=== PATIENT | male | born 1990 | race Caucasian/White ===

== ENCOUNTER 2016-11-08 20:55 | Emergency (ER) | payer SELFPAY ==
[~2016-11-08] VITALS: Ht 175.3 cm; Wt 108.7 kg
[~2016-11-08 20:55] MED LIST: AMOX875 PO; IBUP600T26 PO; TRAM50 PO
[2016-11-08 21:27] VITALS: BP 142/89; PULSE 96; RESP 18; TEMP 98.7; O2SAT 100
[2016-11-08] MEDS ORDERED: BACT800T5 PO (22:04)
[2016-11-08] MEDS ORDERED: MUPI2%T TOPICAL (22:04)
--- NOTE | 2016-11-08 22:09 | PD ---
HPI Chief Complaint: Skin Problem Time Seen by Provider: 22:04 Travel History International Travel<30 days: No Contact w/Intl Traveler<30days: No Traveled to known affect area: No History of Present Illness HPI 26-year-old male presents to the emergency department with lesion to the left calf which started as a pimple and has since grown to about the size of a quarter. Patient states minimal pain but increased erythema and drainage. Patient has a similar small lesion on the dorsal right foot, with just minimal erythema and swelling. Patient denies fever, chills, or history of IV drug use. Patient has no history of MRSA in the past. Patient states she may been bitten by something. He is been treating it at home with buttock ointment and hydrogen peroxide without much improvement. He has no known drug allergies. PFSH Past Medical History Medical History: Denies Significant Hx Diminished Hearing: No Past Surgical History Surgical History: No Previous Surgery Social History Alcohol Use: Yes (OCCASIONAL BEER, MIX DRINKS) Tobacco Use: No Substance Use: Yes (MARIJUANA) Allergies-Medications (Allergen,Severity, Reaction): Coded Allergies: No Known Allergies (Unverified , 11/08/16) Reported Meds & Prescriptions Reported Meds & Active Scripts Active Bactroban Topical (Mupirocin) 2 % Cream 1 Applic TOPICAL BID Bactrim DS (Sulfamethoxazole-Trimethoprim) 800-160 Mg Tab 1 Tab PO BID Review of Systems Except as stated in HPI: all other systems reviewed are Neg General / Constitutional: No: Fever Eyes: No: Visual changes HENT: No: Headaches Cardiovascular: No: Chest Pain or Discomfort Respiratory: No: Shortness of Breath Gastrointestinal: No: Abdominal Pain Genitourinary: No: Dysuria Musculoskeletal: No: Pain Skin: Positive Lesions (see history present illness.), No Rash Neurologic: No: Weakness Psychiatric: No: Depression Endocrine: No: Polydipsia Hematologic/Lymphatic: No: Easy Bruising Physical Exam Narrative GENERAL: Patient appears in no acute distress. SKIN: Warm and dry. Normal color. Normal turgor. Patient has erythematous quarter-sized indurated lesion to the left posterior calf with centralized necrosis without abscess or significant drainage. Pain is minimal with palpation. HEAD: Atraumatic. Normocephalic. EYES: Pupils equal and round. No scleral icterus. No injection or drainage. ENT: No nasal bleeding or discharge. Mucous membranes pink and moist. Pharynx is normal. NECK: Trachea midline. Supple nontender. CARDIOVASCULAR: Regular rate and rhythm. RESPIRATORY: No accessory muscle use. Clear to auscultation. Breath sounds equal bilaterally. GASTROINTESTINAL: Abdomen soft, non-tender, nondistended. Hepatic and splenic margins not palpable. MUSCULOSKELETAL: Extremities without clubbing, cyanosis, or edema. No obvious deformities. NEUROLOGICAL: Awake and alert. No obvious cranial nerve deficits. Motor grossly within normal limits. Five out of 5 muscle strength in the arms and legs. Normal speech. PSYCHIATRIC: Appropriate mood and affect; insight and judgment normal. Data Data Last Documented VS Vital Signs Date Time Temp Pulse Resp B/P Pulse Ox O2 Delivery O2 Flow Rate FiO2 11/08/16 21:27 98.7 96 18 142/89 100 Orders Wound Culture And Gram Stain (11/08/16 22:03) [facility] Medical Decision Making Medical Screen Exam Complete: Yes Emergency Medical Condition: Yes Differential Diagnosis Cellulitis. Folliculitis. MRSA. Insect bite. Narrative Course Patient is medically stable at time of exam. Wound culture is obtained and sent to the lab. Patient is given Bactrim twice a day 7 days. Patient given Bactroban ointment to be applied twice daily for the next 7 days. Wound care is discussed with the patient. Patient to follow up if symptoms do not improve or worsen as discussed. Diagnosis Primary Impression: Cellulitis of left lower leg Patient Instructions: Cellulitis (ED), General Instructions, MRSA (Methicillin Resistant Staphylococcus Aureus) (ED) Additional Instructions: Wound culture is obtained and sent to the lab. Patient is given Bactrim twice a day 7 days. Patient given Bactroban ointment to be applied twice daily for the next 7 days. Wound care is discussed with the patient. Patient to follow up if symptoms do not improve or worsen as discussed. Med/Other Pt SpecificInfo: Prescription(s) given Scripts Mupirocin Topical (Bactroban Topical)2 % Cream1 Applic TOPICAL BID #1 TUBE Prov:Candido Moreno MD 11/08/16 Sulfamethoxazole-Trimethoprim (Bactrim DS)800-160 Mg Tab1 Tab PO BID #14 TAB Prov:Candido Moreno MD 11/08/16 Disposition: 01 DISCHARGE HOME Condition: Stable Miguelito Blood Nov 08, 2016 22:09
[2016-11-08] MEDS ORDERED: MUPIROCIN 2% OINT 22 GM TUBE TOPICAL ONE (22:30)
== END 2016-11-08 22:32 | disposition home or self-care (01) ==
LOC: PHEFT 20:55
DX: L03.116 Cellulitis of left lower limb (principal); A49.02 Methicillin resistant Staphylococcus aureus infection, unspecified site
CPT/HCPCS: 86403; 87070; 87186; 87205; 99283

== ENCOUNTER 2016-11-22 21:58 | Emergency (ER) | payer OTHER ==
[~2016-11-22 21:58] MED LIST changes: -AMOX875 PO; +BACT800T5 PO; -IBUP600T26 PO; +MUPI2%T TOPICAL; -TRAM50 PO
[2016-11-22 21:59] VITALS: BP 160/93; PULSE 79; RESP 22; TEMP 98; O2SAT 97
[2016-11-22] MEDS ORDERED: SILV1CRE20 TOPICAL (22:11)
[2016-11-22] MEDS ORDERED: HYDR-3533 PO (22:11)
[2016-11-22] MEDS ORDERED: IBUP800T23 PO (22:11)
[2016-11-22] MEDS ORDERED: SILVER SULFADIAZINE 1% CR 50 GM JAR TOPICAL ONE (22:15)
[2016-11-22] MEDS ORDERED: ONDANSETRON ODT 4 MG TAB PO ONE (22:15)
[2016-11-22] MEDS ORDERED: HYDROmorphone HCL PF 1 MG/ML VIAL IM ONE (22:15)
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
[2016-11-22] MEDS ORDERED: KETOROLAC TROMETHAMINE 60 MG/2 ML (IM) VIAL IM ONE (23:15)
== END 2016-11-22 23:28 | disposition home or self-care (01) ==
LOC: NEPB 21:58
DX: T23.252A Burn of second degree of left palm, initial encounter (principal); T23.162A Burn of first degree of back of left hand, initial encounter; T31.0 Burns involving less than 10% of body surface; X10.2XXA Contact with fats and cooking oils, initial encounter; Y93.G3 Activity, cooking and baking; Y92.511 Restaurant or cafe as the place of occurrence of the external cause; Y99.0 Civilian activity done for income or pay
CPT/HCPCS: 16020; 96372; 99283; J1170; J1885